=== PATIENT | female | born 1945 | race Caucasian/White ===

== ENCOUNTER 2017-12-09 09:18 | Observation (INO) | payer OTHER, BC ==
[2017-12-09] VITALS (11 sets, daily range): BP systolic 88–123; BP diastolic 43–67
[~2017-12-09] VITALS: Ht 167.6 cm; Wt 77.9 kg
[2017-12-09 10:01] LABS: INTER. NORMALIZED RATIO 1.3
[2017-12-09 10:04] LABS: BASOPHIL (%) 0.4 % (0-1); EOSINOPHIL COUNT 0.2 K/uL (0-0.3); HEMATOCRIT 19.8 % (36.0-46.0); IMMATURE GRANULOCYTE (%) 0.5 % (0.0-0.7); LYMPHOCYTE (%) 10.5 % (15-42); LYMPHOCYTE COUNT 0.9 K/uL (1.0-2.8); MCH 22.3 PG (29.0-34.0); MCHC 26.8 G/DL (30.0-36.0); MCV 83.2 FL (83-99); MONOCYTE (%) 8.2 % (3-12); MONOCYTE COUNT 0.7 K/uL (0-0.8); NEUTROPHIL (%) 78.4 % (45-76); NEUTROPHIL COUNT 6.5 K/uL (1.8-6.4); PLATELET COUNT 204 K/uL (156-360); PTT 23.8 SEC (25-37); RBC DIS.WIDTH-CV 18.6 % (11.8-14.6); RBC DIS.WIDTH-SD 56.8 % (39-53); RED BLOOD COUNT 2.38 M/uL (3.80-5.20); WHITE BLOOD COUNT 8.3 K/uL (4.1-10.2)
[2017-12-09 10:05] LABS: ALBUMIN 2.7 g/dL (3.2-4.8); CHLORIDE 107 mEq/L (99-109); HEMOGLOBIN 5.3 G/DL (11.9-15.5); POTASSIUM 3.7 mEq/L (3.7-5.4); SODIUM 140 mEq/L (136-147)
[2017-12-09 10:06] LABS: MAGNESIUM 1.3 mg/dL (1.3-2.7)
[2017-12-09 10:08] LABS: GLUCOSE 174 mg/dL (70-99); TOTAL PROTEIN 5.6 g/dL (6.4-8.3)
[2017-12-09 10:10] LABS: TOTAL BILIRUBIN 0.3 mg/dL (0.0-1.0)
[2017-12-09 10:11] LABS: ALKALINE PHOSPHATASE 177 IU/L (3-129); CREATININE 0.8 mg/dL (0.6-1.3); GFR ESTIMATE (CALCULATED) > 59 mL/min/
[2017-12-09 10:12] LABS: UREA NITROGEN (BUN) 26 mg/dL (9-23)
[2017-12-09 10:13] LABS: AST (GOT) 14 IU/L (2-34)
[2017-12-09 10:14] LABS: ALT (GPT) 5 IU/L (3-49)
[2017-12-09 10:17] LABS: TROP-I INTERPRETATION NEGATIVE; TROPONIN-I 0.02 ng/mL (0.0-0.30)
[2017-12-09] MEDS ORDERED: SEROQUEL12.5 MG PO (11:05)
[2017-12-09] MEDS ORDERED: KEPPRA500 MG PO (11:05)
[2017-12-09] MEDS ORDERED: PLAVIX75 MG PO (11:06)
[2017-12-09] MEDS ORDERED: ATORVASTATIN CA40 MG PO (11:07)
[2017-12-09] MEDS ORDERED: GABAPENTIN300 MG PO (11:07)
[2017-12-09] MEDS ORDERED: MULTI VITAMIN1 EACH PO (11:08)
[2017-12-09] MEDS ORDERED: LANTUS 10100 UNITS/ SC (11:08)
[2017-12-09] MEDS ORDERED: VITAMIN D31000 UNI2 PO (11:09)
[2017-12-09] MEDS ORDERED: ASPIR-LOW81 MG PO (11:09)
[2017-12-09] MEDS ORDERED: MAG-OXIDE400 MG PO (11:09)
[2017-12-09] MEDS ORDERED: FAMOTIDINE20 MG PO (11:09)
[2017-12-09] MEDS ORDERED: METOPROLOL SUCC25 MG PO (11:10)
[2017-12-09] MEDS ORDERED: LASIX40 MG PO (11:10)
[2017-12-09] MEDS ORDERED: TYLENOL REGULA325 MG PO (11:11)
[2017-12-09] MEDS ORDERED: NOVOLOG 10100 UNITS/ SC (11:11)
[2017-12-09] MEDS ORDERED: OXYCODONE HCL5 MG PO (11:11)
[2017-12-09] MEDS ORDERED: SENNA PLUS TAB1 EACH PO (11:12)
[2017-12-09] MEDS ORDERED: ALBUTEROL2.5 MG/3 M IH (11:12)
[2017-12-09 12:24] LABS: ABSOLUTE RETICULOCYTE CT. 0.1 M/uL (0.02-0.08); IMM.RETIC FRACTION 4.1 % (3-19); RETIC HGB EQUIVALENT 13.4 (28-36)
[2017-12-09 16:45] LABS: TROP-I INTERPRETATION NEGATIVE; TROPONIN-I 0.02 ng/mL (0.0-0.30)
[2017-12-09 22:40] LABS: HEMATOCRIT 28.2 % (36.0-46.0); MCV 83.2 FL (83-99)
[2017-12-09 22:54] LABS: TROP-I INTERPRETATION NEGATIVE; TROPONIN-I 0.03 ng/mL (0.0-0.30)
[2017-12-09 22:59] LABS: HEMOGLOBIN 8.1 G/DL (11.9-15.5)
[2017-12-10 03:30] VITALS: BP 96/51
[2017-12-10 06:16] LABS: CHLORIDE 108 MEQ/L (99-109); CREATININE 0.7 MG/DL (0.6-1.3); GFR ESTIMATE (CALCULATED) > 59 mL/min/; POTASSIUM 3.3 MEQ/L (3.7-5.4); SODIUM 140 MEQ/L (136-147); UREA NITROGEN (BUN) 21 mg/dL (9-23)
[2017-12-10 06:20] LABS: GLUCOSE 79 mg/dL (70-99)
[2017-12-10 08:51] VITALS: BP 134/71
[2017-12-10 10:37] LABS: HEMATOCRIT 29.8 % (36.0-46.0); HEMOGLOBIN 8.6 G/DL (11.9-15.5); MCV 83.7 FL (83-99)
[2017-12-10 10:59] VITALS: BP 117/56
[2017-12-10] MEDS ORDERED: LEVAQUIN500 MG PO (15:10)
[2017-12-10] MEDS ORDERED: PROTONIX40 MG PO (15:11)
[2017-12-10 16:30] VITALS: BP 123/74
[2017-12-12 17:02] LABS: Folate, RBC 19.9 % (()); RFOL Hematocrit >1000 (>280)
== END 2017-12-10 18:55 | disposition home or self-care (01) ==
LOC: EME 09:18 → EDOF 10:11 → 4EAST 10:11 → ENRESERV 10:12 → 4EAST 17:59
PROVIDERS: Emergency Medicine; Internal Medicine
PROC: 30233N1 Transfusion of Nonautologous Red Blood Cells into Peripheral Vein, Percutaneous Approach (ICD-10-PCS; principal; 2017-12-09)
DX: D64.9 Anemia, unspecified (principal); R19.5 Other fecal abnormalities; I48.91 Unspecified atrial fibrillation; E11.51 Type 2 diabetes mellitus with diabetic peripheral angiopathy without gangrene; I13.0 Hypertensive heart and chronic kidney disease with heart failure and stage 1 through stage 4 chronic kidney disease, or unspecified chronic kidney disease; I50.9 Heart failure, unspecified; N18.9 Chronic kidney disease, unspecified; E11.22 Type 2 diabetes mellitus with diabetic chronic kidney disease; I25.10 Atherosclerotic heart disease of native coronary artery without angina pectoris; E87.6 Hypokalemia; J44.9 Chronic obstructive pulmonary disease, unspecified; R09.02 Hypoxemia; F39 Unspecified mood [affective] disorder; Z79.02 Long term (current) use of antithrombotics/antiplatelets; Z79.82 Long term (current) use of aspirin; Z95.1 Presence of aortocoronary bypass graft; Z79.4 Long term (current) use of insulin; Z86.69 Personal history of other diseases of the nervous system and sense organs
CPT/HCPCS: 36415; 71045; 80048; 80053; 81003; 82272; 82607; 82728; 82747 90; 82948; 83036; 83605; 83735; 83880; 84484; 85014; 85018; 85025; 85025 91; 85046; 85610; 85730; 86850; 86900; 86901; 86920; 87040; 93005; 99281; 99285; C9113; G0378; J1940; J1956; J7040; P9016; S0028

== ENCOUNTER 2017-12-17 16:25 | Emergency (ER) | payer OTHER, BC ==
[~2017-12-17] VITALS: Ht 170.2 cm; Wt 80.5 kg
[~2017-12-17 16:25] MED LIST: ALBUTEROL2.5 MG/3 M IH; ASPIR-LOW81 MG PO; ATORVASTATIN CA40 MG PO; FAMOTIDINE20 MG PO; GABAPENTIN300 MG PO; KEPPRA500 MG PO; LANTUS 10100 UNITS/ SC; LASIX40 MG PO; LEVAQUIN500 MG PO; MAG-OXIDE400 MG PO; METOPROLOL SUCC25 MG PO; MULTI VITAMIN1 EACH PO; NOVOLOG 10100 UNITS/ SC; OXYCODONE HCL5 MG PO; PLAVIX75 MG PO; PROTONIX40 MG PO; SENNA PLUS TAB1 EACH PO; SEROQUEL12.5 MG PO; TYLENOL REGULA325 MG PO; VITAMIN D31000 UNI2 PO
[2017-12-17 17:41] LABS: INTER. NORMALIZED RATIO 1.2
[2017-12-17 17:42] LABS: HEMATOCRIT 32.5 % (36.0-46.0); MCH 23.6 PG (29.0-34.0); MCHC 27.7 G/DL (30.0-36.0); MCV 85.1 FL (83-99); PLATELET COUNT 200 K/uL (156-360); RBC DIS.WIDTH-SD 55.8 % (39-53); RED BLOOD COUNT 3.82 M/uL (3.80-5.20); WHITE BLOOD COUNT 13.5 K/uL (4.1-10.2)
[2017-12-17 17:45] LABS: CHLORIDE 108 mEq/L (99-109); POTASSIUM 4.3 mEq/L (3.7-5.4); SODIUM 142 mEq/L (136-147)
[2017-12-17 17:46] LABS: GLUCOSE 131 mg/dL (70-99)
[2017-12-17 17:50] LABS: CREATININE 0.9 mg/dL (0.6-1.3); GFR ESTIMATE (CALCULATED) > 59 mL/min/
[2017-12-17 17:51] LABS: UREA NITROGEN (BUN) 23 mg/dL (9-23)
[2017-12-17 21:21] VITALS: BP 104/54
== END 2017-12-17 21:20 | disposition home or self-care (01) ==
LOC: EME 16:25
DX: D64.9 Anemia, unspecified (principal); M54.5 Low back pain; J44.9 Chronic obstructive pulmonary disease, unspecified; E78.5 Hyperlipidemia, unspecified; I50.9 Heart failure, unspecified; N18.9 Chronic kidney disease, unspecified; Z95.1 Presence of aortocoronary bypass graft; R56.9 Unspecified convulsions; I73.9 Peripheral vascular disease, unspecified
CPT/HCPCS: 80048; 85027; 85610; 86850; 86900; 86901

== ENCOUNTER 2018-01-20 17:27 | Inpatient (IN) | payer OTHER, BC ==
[~2018-01-20] VITALS: Ht 170.2 cm; Wt 88.3 kg
[2018-01-20 18:34] LABS: INTER. NORMALIZED RATIO 1.4
[2018-01-20 18:37] LABS: ALBUMIN 2.7 g/dL (3.2-4.8); CHLORIDE 105 mEq/L (99-109); NRBC (%) 0.4 /100 WBC (0-0); POTASSIUM 5.2 mEq/L (3.7-5.4); SODIUM 144 mEq/L (136-147)
[2018-01-20 18:42] LABS: GLUCOSE 144 mg/dL (70-99); TOTAL BILIRUBIN 0.4 mg/dL (0.0-1.0); TOTAL PROTEIN 5.5 g/dL (6.4-8.3)
[2018-01-20 18:43] LABS: ALKALINE PHOSPHATASE 187 IU/L (3-129); CREATININE 1.4 mg/dL (0.6-1.3); GFR ESTIMATE (CALCULATED) 39 mL/min/
[2018-01-20 18:44] LABS: UREA NITROGEN (BUN) 42 mg/dL (9-23)
[2018-01-20 18:45] LABS: AST (GOT) 17 IU/L (2-34)
[2018-01-20 18:46] LABS: ALT (GPT) 10 IU/L (3-49)
[2018-01-20 18:47] LABS: APPEARANCE TURBID ((CLEAR)); BILIRUBIN NEGATIVE; BLOOD SMALL; COLOR AMBER ((YELLOW)); GLUCOSE (STRIP) NEGATIVE; KETONES NEGATIVE; LEUKOCYTES LARGE; NITRITE NEGATIVE; PROTEIN (STRIP) 30; SPECIFIC GRAVITY 1.016 (1.000-1.030)
[2018-01-20] MEDS ORDERED: PLAVIX75 MG PO (18:57)
[2018-01-20] MEDS ORDERED: PEPCID20 MG PO (18:59)
[2018-01-20] MEDS ORDERED: ASPIRIN81 M2 PO (19:00)
[2018-01-20] MEDS ORDERED: PROTONIX40 MG PO (19:02)
[2018-01-20] MEDS ORDERED: BASAGLAR K100 UNIT/1 SC (19:02)
[2018-01-20] MEDS ORDERED: HUMALOG100 UNIT/1 SC (19:04)
[2018-01-20 19:05] LABS: BACTERIA 1+ /HPF; EPITHELIAL CELLS 1+ /HPF; MUCUS 1+ /LPF; RED BLOOD CELLS RARE /HPF (0-5); UCUL ADDED? YES; WHITE BLOOD CELLS TNTC /HPF (0-5)
[2018-01-20] MEDS ORDERED: FEOSOL325 MG PO (19:05)
[2018-01-20] MEDS ORDERED: KLOR-CON M2020 MEQ PO (19:05)
[2018-01-20] MEDS ORDERED: OXYCONTIN10 MG PO (19:06)
[2018-01-20 19:07] LABS: TROP-I INTERPRETATION NEGATIVE; TROPONIN-I 0.04 ng/mL (0.0-0.30)
[2018-01-20] MEDS ORDERED: SENNA8.6 MG PO (19:08)
[2018-01-20] MEDS ORDERED: ATIVAN0.5 MG PO (19:10)
[2018-01-20] MEDS ORDERED: MILK OF MAGN PO (19:10)
[2018-01-20] MEDS ORDERED: FLEET ENEMA-AD118 ML PR (19:11)
[2018-01-20] MEDS ORDERED: DULCOLAX10 MG PR (19:11)
[2018-01-20 19:30] LABS: BASOPHIL (%) 0.5 % (0-1); EOSINOPHIL (%) 1.8 % (0-5); EOSINOPHIL COUNT 0.1 K/uL (0-0.3); HEMATOCRIT 29.7 % (36.0-46.0); HEMATOLOGY COMMENT 1 SN; HEMOGLOBIN 7.8 G/DL (11.9-15.5); IMMATURE GRANULOCYTE (%) 0.4 % (0.0-0.7); LYMPHOCYTE (%) 10.5 % (15-42); LYMPHOCYTE COUNT 0.8 K/uL (1.0-2.8); MCH 23.8 PG (29.0-34.0); MCHC 26.3 G/DL (30.0-36.0); MCV 90.5 FL (83-99); MONOCYTE (%) 6.6 % (3-12); MONOCYTE COUNT 0.5 K/uL (0-0.8); NEUTROPHIL (%) 80.2 % (45-76); NEUTROPHIL COUNT 5.9 K/uL (1.8-6.4); PLAT.SUFFICIENCY ADEQUATE; PLATELET COUNT 156 K/uL (156-360); RBC DIS.WIDTH-CV 20.4 % (11.8-14.6); RBC DIS.WIDTH-SD 67.6 % (39-53); RED BLOOD COUNT 3.28 M/uL (3.80-5.20); WHITE BLOOD COUNT 7.3 K/uL (4.1-10.2)
[2018-01-20 19:50] LABS: COMMENTS - BLOOD GASES C+A+; DEVICE VENT; FI02 100 %; MECHANICAL RATE 14 resp/min; MODE AC; SITE RR; TOTAL RESP RATE 14 resp/min
[2018-01-20 19:51] LABS: BASE EXCESS 6.4 mEq/L (-3 to +3); BICARBONATE 31.2 mEq/L (22-26); METHEMOGLOBIN 1.3 % (0-1.5); PCO2 46 mm Hg (35-45); PEEP 5 CM/H20; PO2 430 mm Hg (80-100); TIDAL VOLUME 450 ML; pH 7.44 (7.35-7.45)
[2018-01-20 23:30] VITALS: BP 90/60
[2018-01-20 23:58] VITALS: BP 90/60
[2018-01-21] VITALS (19 sets, daily range): BP systolic 70–104; BP diastolic 41–67
[2018-01-21 05:11] LABS: BASE EXCESS 6.8 mEq/L (-3 to +3); BICARBONATE 29.9 mEq/L (22-26); CARBOXY HGB 2.3 % (0-5); COMMENTS - BLOOD GASES C+; DEVICE VENT; FI02 30 %; MECHANICAL RATE 14 resp/min; METHEMOGLOBIN 0.9 % (0-1.5); MODE ACVC; PCO2 35 mm Hg (35-45); PO2 73 mm Hg (80-100); SITE LB; TIDAL VOLUME 450 ML; pH 7.54 (7.35-7.45)
[2018-01-21 05:12] LABS: PEEP 5 CM/H20
[2018-01-21 05:55] LABS: BASOPHIL (%) 0.7 % (0-1); EOSINOPHIL (%) 2.7 % (0-5); EOSINOPHIL COUNT 0.2 K/uL (0-0.3); HEMATOCRIT 29.9 % (36.0-46.0); HEMOGLOBIN 7.8 G/DL (11.9-15.5); IMMATURE GRANULOCYTE (%) 0.3 % (0.0-0.7); LYMPHOCYTE COUNT 1.1 K/uL (1.0-2.8); MCH 23.1 PG (29.0-34.0); MCHC 26.1 G/DL (30.0-36.0); MCV 88.7 FL (83-99); MONOCYTE (%) 8.1 % (3-12); MONOCYTE COUNT 0.5 K/uL (0-0.8); NEUTROPHIL (%) 69.2 % (45-76); NRBC (%) 0.3 /100 WBC (0-0); RBC DIS.WIDTH-CV 20.7 % (11.8-14.6); RBC DIS.WIDTH-SD 65.7 % (39-53); RED BLOOD COUNT 3.37 M/uL (3.80-5.20); WHITE BLOOD COUNT 5.8 K/uL (4.1-10.2)
[2018-01-21 05:58] LABS: MAGNESIUM 1.7 mg/dl (1.3-2.7); PHOSPHORUS 2.6 mg/dL (2.5-4.9)
[2018-01-21 08:26] LABS: PLAT.SUFFICIENCY DECREASED; PLATELET COUNT 130 K/uL (156-360)
[2018-01-21 09:50] LABS: BASE EXCESS 5.7 mEq/L (-3 to +3); BICARBONATE 27.5 mEq/L (22-26); CARBOXY HGB 2.5 % (0-5); COMMENTS - BLOOD GASES A+C+; DEVICE PB 840; FI02 50 %; MECHANICAL RATE 14 resp/min; METHEMOGLOBIN 1.2 % (0-1.5); MODE AC; PCO2 28 mm Hg (35-45); PO2 92 mm Hg (80-100); SITE RR; TIDAL VOLUME 450 ML; TOTAL RESP RATE 36 resp/min
[2018-01-21 09:51] LABS: PEEP 5 CM/H20
[2018-01-21 20:23] LABS: BASOPHIL (%) 0.3 % (0-1); EOSINOPHIL (%) 0.9 % (0-5); EOSINOPHIL COUNT 0.1 K/uL (0-0.3); HEMATOCRIT 25.2 % (36.0-46.0); HEMOGLOBIN 6.8 G/DL (11.9-15.5); IMMATURE GRANULOCYTE (%) 0.3 % (0.0-0.7); LYMPHOCYTE (%) 7.5 % (15-42); LYMPHOCYTE COUNT 0.6 K/uL (1.0-2.8); MCH 23.3 PG (29.0-34.0); MCV 86.3 FL (83-99); MONOCYTE (%) 5.6 % (3-12); MONOCYTE COUNT 0.4 K/uL (0-0.8); NEUTROPHIL (%) 85.4 % (45-76); NEUTROPHIL COUNT 6.5 K/uL (1.8-6.4); NRBC (%) 0.3 /100 WBC (0-0); PLATELET COUNT 142 K/uL (156-360); RBC DIS.WIDTH-CV 21.3 % (11.8-14.6); RBC DIS.WIDTH-SD 66.4 % (39-53); RED BLOOD COUNT 2.92 M/uL (3.80-5.20); WHITE BLOOD COUNT 7.6 K/uL (4.1-10.2)
[2018-01-21 20:33] LABS: ALBUMIN 1.9 G/DL (3.2-4.8); ALKALINE PHOSPHATASE 122 IU/L (3-129); ALT (GPT) 5 IU/L (3-49); AST (GOT) 13 IU/L (2-34); CHLORIDE 111 MEQ/L (99-109); CREATININE 0.9 MG/DL (0.6-1.3); GFR ESTIMATE (CALCULATED) > 59 mL/min/; GLUCOSE 91 mg/dL (70-99); MAGNESIUM 1.5 mg/dl (1.3-2.7); PHOSPHORUS 2.4 mg/dL (2.5-4.9); POTASSIUM 3.5 MEQ/L (3.7-5.4); SODIUM 145 MEQ/L (136-147); TOTAL BILIRUBIN 0.7 MG/DL (0.0-1.0); TOTAL PROTEIN 4.2 G/DL (6.4-8.3); UREA NITROGEN (BUN) 32 mg/dL (9-23)
[2018-01-21 23:22] LABS: BASE EXCESS 1.6 mEq/L (-3 to +3); BICARBONATE 25.8 mEq/L (22-26); CARBOXY HGB 2.1 % (0-5); METHEMOGLOBIN 1.3 % (0-1.5)
[2018-01-21 23:23] LABS: COMMENTS - BLOOD GASES C+; DEVICE VENT; FI02 80 %; MECHANICAL RATE 14 resp/min; MODE AC; PCO2 38 mm Hg (35-45); PEEP 8 CM/H20; PO2 274 mm Hg (80-100); SITE A-LINE; TIDAL VOLUME 450 ML; TOTAL RESP RATE 14 resp/min; pH 7.44 (7.35-7.45)
[2018-01-22] VITALS (11 sets, daily range): BP systolic 107–139; BP diastolic 52–76
[2018-01-22 10:01] LABS: BASOPHIL (%) 0.5 % (0-1); BASOPHIL COUNT 0.1 K/uL (0-0.1); EOSINOPHIL (%) 1.5 % (0-5); EOSINOPHIL COUNT 0.2 K/uL (0-0.3); HEMATOCRIT 31.3 % (36.0-46.0); HEMOGLOBIN 8.4 G/DL (11.9-15.5); IMMATURE GRANULOCYTE (%) 0.4 % (0.0-0.7); LYMPHOCYTE (%) 6.5 % (15-42); LYMPHOCYTE COUNT 0.9 K/uL (1.0-2.8); MCHC 26.8 G/DL (30.0-36.0); MCV 85.8 FL (83-99); MONOCYTE (%) 5.6 % (3-12); MONOCYTE COUNT 0.7 K/uL (0-0.8); NEUTROPHIL (%) 85.5 % (45-76); NEUTROPHIL COUNT 11.3 K/uL (1.8-6.4); NRBC (%) 0.2 /100 WBC (0-0); RBC DIS.WIDTH-CV 22.9 % (11.8-14.6); RBC DIS.WIDTH-SD 68.5 % (39-53); WHITE BLOOD COUNT 13.2 K/uL (4.1-10.2)
[2018-01-22 10:34] LABS: PLATELET COUNT 312 K/uL (156-360); RED BLOOD COUNT 3.65 M/uL (3.80-5.20)
[2018-01-22 11:13] LABS: CHLORIDE 107 MEQ/L (99-109); CREATININE 0.8 MG/DL (0.6-1.3); GFR ESTIMATE (CALCULATED) > 59 mL/min/; IRON 12 MCG/DL (35-150); POTASSIUM 3.4 MEQ/L (3.7-5.4); SODIUM 142 MEQ/L (136-147); TRANSFERRIN (TIBC) 186.4 mg/dL (215-380); TRANSFERRIN SATUR. 6 % (20-55); UREA NITROGEN (BUN) 26 mg/dL (9-23)
[2018-01-22 11:16] LABS: GLUCOSE 202 mg/dL (70-99)
[2018-01-23] VITALS (21 sets, daily range): BP systolic 91–151; BP diastolic 44–73
[2018-01-23 11:58] LABS: BASOPHIL (%) 0.1 % (0-1); EOSINOPHIL (%) 0.8 % (0-5); EOSINOPHIL COUNT 0.1 K/uL (0-0.3); HEMOGLOBIN 7.7 G/DL (11.9-15.5); IMMATURE GRANULOCYTE (%) 0.4 % (0.0-0.7); LYMPHOCYTE (%) 6.6 % (15-42); LYMPHOCYTE COUNT 0.5 K/uL (1.0-2.8); MCH 23.1 PG (29.0-34.0); MCHC 26.6 G/DL (30.0-36.0); MCV 87.1 FL (83-99); MONOCYTE (%) 3.7 % (3-12); MONOCYTE COUNT 0.3 K/uL (0-0.8); NEUTROPHIL (%) 88.4 % (45-76); NEUTROPHIL COUNT 6.4 K/uL (1.8-6.4); RBC DIS.WIDTH-CV 21.7 % (11.8-14.6); RED BLOOD COUNT 3.33 M/uL (3.80-5.20); WHITE BLOOD COUNT 7.3 K/uL (4.1-10.2)
[2018-01-23 12:17] LABS: CHLORIDE 111 MEQ/L (99-109); CREATININE 0.6 MG/DL (0.6-1.3); GFR ESTIMATE (CALCULATED) > 59 mL/min/; GLUCOSE 135 mg/dL (70-99); POTASSIUM 2.9 MEQ/L (3.7-5.4); SODIUM 145 MEQ/L (136-147); UREA NITROGEN (BUN) 17 mg/dL (9-23)
[2018-01-23 12:38] LABS: PLAT.SUFFICIENCY ADEQUATE
[2018-01-23 13:24] LABS: PLATELET COUNT 172 K/uL (156-360)
[2018-01-24] VITALS (11 sets, daily range): BP systolic 88–127; BP diastolic 43–71
[2018-01-24 05:47] LABS: HEMATOCRIT 27.4 % (36.0-46.0); HEMOGLOBIN 7.2 G/DL (11.9-15.5); MCH 22.7 PG (29.0-34.0); MCHC 26.3 G/DL (30.0-36.0); MCV 86.4 FL (83-99); PLATELET COUNT 170 K/uL (156-360); RBC DIS.WIDTH-CV 21.7 % (11.8-14.6); RBC DIS.WIDTH-SD 68.6 % (39-53); RED BLOOD COUNT 3.17 M/uL (3.80-5.20); WHITE BLOOD COUNT 2.7 K/uL (4.1-10.2)
[2018-01-24 06:02] LABS: BASE EXCESS 2.4 mEq/L (-3 to +3); BICARBONATE 26.2 mEq/L (22-26); CARBOXY HGB 2.1 % (0-5); METHEMOGLOBIN 0.6 % (0-1.5); PCO2 36 mm Hg (35-45); PO2 102 mm Hg (80-100); pH 7.47 (7.35-7.45)
[2018-01-24 06:03] LABS: COMMENTS - BLOOD GASES C+; DEVICE VENT; FI02 30 %; MECHANICAL RATE 14 resp/min; MODE AC; PEEP 5 CM/H20; SITE ALINE; TIDAL VOLUME 450 ML; TOTAL RESP RATE 14 resp/min
[2018-01-24 06:07] LABS: CHLORIDE 111 MEQ/L (99-109); CREATININE 0.6 MG/DL (0.6-1.3); GFR ESTIMATE (CALCULATED) > 59 mL/min/; GLUCOSE 176 mg/dL (70-99); POTASSIUM 3.3 MEQ/L (3.7-5.4); SODIUM 146 MEQ/L (136-147); UREA NITROGEN (BUN) 15 mg/dL (9-23)
[2018-01-25] VITALS (18 sets, daily range): BP systolic 92–133; BP diastolic 55–108
[2018-01-26 04:00] VITALS: BP 112/68
[2018-01-26 07:17] VITALS: BP 122/61
[2018-01-26 07:39] LABS: BASOPHIL (%) 0 % (0-1); EOSINOPHIL (%) 0.2 % (0-5); HEMATOCRIT 33.1 % (36.0-46.0); HEMOGLOBIN 8.2 G/DL (11.9-15.5); IMMATURE GRANULOCYTE (%) 0.7 % (0.0-0.7); LYMPHOCYTE (%) 16.7 % (15-42); LYMPHOCYTE COUNT 0.7 K/uL (1.0-2.8); MCH 22.8 PG (29.0-34.0); MCHC 24.8 G/DL (30.0-36.0); MONOCYTE (%) 9.7 % (3-12); MONOCYTE COUNT 0.4 K/uL (0-0.8); NEUTROPHIL (%) 72.7 % (45-76); NEUTROPHIL COUNT 2.9 K/uL (1.8-6.4); PLATELET COUNT 137 K/uL (156-360); RBC DIS.WIDTH-CV 20.9 % (11.8-14.6); RBC DIS.WIDTH-SD 71.1 % (39-53); RED BLOOD COUNT 3.59 M/uL (3.80-5.20)
[2018-01-26 07:45] LABS: MCV 92.2 FL (83-99)
[2018-01-26 07:50] LABS: CHLORIDE 112 MEQ/L (99-109); CREATININE 0.8 MG/DL (0.6-1.3); GFR ESTIMATE (CALCULATED) > 59 mL/min/; POTASSIUM 3.3 MEQ/L (3.7-5.4); SODIUM 148 MEQ/L (136-147); UREA NITROGEN (BUN) 18 mg/dL (9-23)
[2018-01-26 07:51] LABS: GLUCOSE 113 mg/dL (70-99)
[2018-01-26 11:43] VITALS: BP 135/66
[2018-01-26 15:25] VITALS: BP 138/63
[2018-01-26 20:30] VITALS: BP 142/72
[2018-01-27 00:07] VITALS: BP 154/75
[2018-01-27 04:26] VITALS: BP 151/74
[2018-01-27 06:33] LABS: BASOPHIL (%) 0 % (0-1); EOSINOPHIL (%) 0.3 % (0-5); HEMATOCRIT 31.4 % (36.0-46.0); HEMOGLOBIN 7.9 G/DL (11.9-15.5); IMMATURE GRANULOCYTE (%) 0.6 % (0.0-0.7); LYMPHOCYTE (%) 15.5 % (15-42); LYMPHOCYTE COUNT 0.5 K/uL (1.0-2.8); MCHC 25.2 G/DL (30.0-36.0); MCV 91.3 FL (83-99); MONOCYTE COUNT 0.3 K/uL (0-0.8); NEUTROPHIL (%) 75.6 % (45-76); NEUTROPHIL COUNT 2.5 K/uL (1.8-6.4); PLATELET COUNT 115 K/uL (156-360); RBC DIS.WIDTH-CV 20.6 % (11.8-14.6); RBC DIS.WIDTH-SD 68.4 % (39-53); RED BLOOD COUNT 3.44 M/uL (3.80-5.20); WHITE BLOOD COUNT 3.4 K/uL (4.1-10.2)
[2018-01-27 06:54] LABS: CHLORIDE 112 MEQ/L (99-109); CREATININE 0.8 MG/DL (0.6-1.3); GFR ESTIMATE (CALCULATED) > 59 mL/min/; GLUCOSE 144 mg/dL (70-99); POTASSIUM 3.5 MEQ/L (3.7-5.4); SODIUM 146 MEQ/L (136-147); UREA NITROGEN (BUN) 17 mg/dL (9-23)
[2018-01-27 06:57] VITALS: BP 145/73
[2018-01-27] MEDS ORDERED: DUONEB 2.5-0.5 M3 ML AEROSOL (11:37)
[2018-01-27] MEDS ORDERED: HEPARIN SO5000 UNIT4 SC (11:37)
[2018-01-27] MEDS ORDERED: OXYCODONE HCL5 MG PO (11:39)
[2018-01-27] MEDS ORDERED: ATIVAN0.5 MG PO (11:39)
[2018-01-27] MEDS ORDERED: CEFTIN500 MG PO (11:40)
== END 2018-01-27 14:44 | DRG 871 ==
LOC: EME 17:27 → 4WEST 19:41 → EDOF 19:41 → ENRESERV 19:42 → 4WEST 23:34 → ENRESERV 01-25 15:34 → 4WEST 01-25 16:52 → 2EAST 01-25 18:08
PROVIDERS: Emergency Medicine; Family Medicine; Internal Medicine; Internal Medicine Critical Care Medicine; Specialist; Surgery
PROC: 0BH17EZ Insertion of Endotracheal Airway into Trachea, Via Natural or Artificial Opening (ICD-10-PCS; principal; 2018-01-20)
PROC: 5A1945Z Respiratory Ventilation, 24-96 Consecutive Hours (ICD-10-PCS; principal; 2018-01-20)
PROC: 06HN33Z Insertion of Infusion Device into Left Femoral Vein, Percutaneous Approach (ICD-10-PCS; 2018-01-21)
PROC: B54BZZA Ultrasonography of Right Lower Extremity Veins, Guidance (ICD-10-PCS; 2018-01-21)
PROC: 06HM33Z Insertion of Infusion Device into Right Femoral Vein, Percutaneous Approach (ICD-10-PCS; 2018-01-21)
PROC: 04HY32Z Insertion of Monitoring Device into Lower Artery, Percutaneous Approach (ICD-10-PCS; 2018-01-21)
PROC: 03HY32Z Insertion of Monitoring Device into Upper Artery, Percutaneous Approach (ICD-10-PCS; 2018-01-23)
DX: A41.9 Sepsis, unspecified organism (principal); R65.21 Severe sepsis with septic shock; N39.0 Urinary tract infection, site not specified; J69.0 Pneumonitis due to inhalation of food and vomit; J96.01 Acute respiratory failure with hypoxia; N17.9 Acute kidney failure, unspecified; B96.1 Klebsiella pneumoniae [K. pneumoniae] as the cause of diseases classified elsewhere; E87.6 Hypokalemia; Z66 Do not resuscitate; I13.0 Hypertensive heart and chronic kidney disease with heart failure and stage 1 through stage 4 chronic kidney disease, or unspecified chronic kidney disease; I50.9 Heart failure, unspecified; E11.22 Type 2 diabetes mellitus with diabetic chronic kidney disease; N18.9 Chronic kidney disease, unspecified; D64.9 Anemia, unspecified; I48.91 Unspecified atrial fibrillation; J44.9 Chronic obstructive pulmonary disease, unspecified; E11.621 Type 2 diabetes mellitus with foot ulcer; L97.419 Non-pressure chronic ulcer of right heel and midfoot with unspecified severity; E11.40 Type 2 diabetes mellitus with diabetic neuropathy, unspecified; E11.51 Type 2 diabetes mellitus with diabetic peripheral angiopathy without gangrene; I25.10 Atherosclerotic heart disease of native coronary artery without angina pectoris; E78.5 Hyperlipidemia, unspecified; Z79.4 Long term (current) use of insulin; Z95.1 Presence of aortocoronary bypass graft; Z79.891 Long term (current) use of opiate analgesic; Z88.1 Allergy status to other antibiotic agents
CPT/HCPCS: 36415; 36600; 70450; 71045; 72170; 80048; 80053; 81003; 82728; 82803; 82948; 83540; 83605; 83735; 83880; 84100; 84466; 84484; 85025; 85025 91; 85027; 85610; 86850; 86900; 86901; 86920; 87040; 87070; 87077; 87086; 87186; 87205; 87641; 92526 GN; 92610 GN; 93005; 94002; 94003; 94640; 94640 76; 94760; 94799; 99202; 99281; 99285; C1751; C1769; J0696; J1644; J1720; J1815; J2020; J2250; J2543; J2704; J7030; J7040; J7050; S0028